=== PATIENT | female | born 1990 | race American Indian/Alaskan Native ===

== ENCOUNTER 2018-12-22 14:44 | Emergency (ER) | payer MEDICAID ==
[2018-12-22 14:51] VITALS: TEMP 98
[2018-12-22] MEDS ORDERED: Sodium Chloride 0.9% 1,000 ML IV STA (15:15)
[2018-12-22] MEDS ORDERED: Magnesium Sulfate 1 gm in D5W 1 GM/100 ML BAG IVPB STA (15:15)
[2018-12-22] MEDS ORDERED: Dexamethasone 4 mg/1 ml IVP STA (15:15)
--- NOTE | 2018-12-22 15:15 | C.PDOC ---
History Of Present Illness Patient is a 28 year old female, with a PMHx of intermittent headache, who presents to the ED c/o persistent headache for the past 6 months. Patient states that she feels when the headache is about to come on and notes associated blurry vision and nausea. Patient denies taking pain medications because she "doesn't like taking medications". She also denies any prior evaluation for her present symptom because "I would go to the hospital, but I wouldn't have the patience to be evaluated so I would leave". She denies any trauma, dizziness, or other associated symptoms. ALSO HO GASTRITIS BUT NONCOMPLIANT WITH MEDS Time Seen by Provider: 12/22/18 15:03 Chief Complaint (Nursing): Headache History/Exam Limitations: no limitations Onset/Duration Of Symptoms: Other (6 months) Current Symptoms Are (Timing): Still Present Quality: "Pain" Associated Symptoms: Blurred Vision, Nausea Recent travel outside of the [place]: No Additional History Per: Patient Past Medical History Reviewed: Historical Data, Nursing Documentation, Vital Signs Vital Signs: Last Vital Signs Temp 98 F 12/22/18 14:48 Pulse 83 12/22/18 14:48 Resp 20 12/22/18 14:48 BP 103/71 12/22/18 14:48 Pulse Ox 100 12/22/18 14:48 Primary Care Provider: FAMILY PROVIDER,NO - Medical History PMH: Asthma Surgical History: No Surg Hx Family History: States: No Known Family Hx - Social History Hx Alcohol Use: Yes (Ex drinker) Hx Substance Use: Yes - Immunization History Hx Tetanus Toxoid Vaccination: No Hx Influenza Vaccination: No Hx Pneumococcal Vaccination: No Review Of Systems Except As Marked, All Systems Reviewed And Found Negative. Eyes: Positive for: Vision Change (blurry vision ) Gastrointestinal: Positive for: Nausea Neurological: Positive for: Headache Physical Exam - Physical Exam Appears: Non-toxic, Other (uncomfortable ) Skin: Warm, Dry Head: Atraumatic, Normacephalic Eye(s): bilateral: Normal Inspection, Other (mild photophobia ) Oral Mucosa: Moist Neck: Normal ROM, Supple Chest: Symmetrical, No Deformity Cardiovascular: Rhythm Regular, No Murmur Respiratory: Other (NARD) Neurological/Psych: Oriented x3, Normal Speech, Normal Cognition, Normal Motor, Normal Sensation, Normal Reflexes, Other (Neuro intact) ED Course And Treatment - Laboratory Results Urine POC: Positive O2 Sat by Pulse Oximetry: 100 (on RA) Pulse Ox Interpretation: Normal Progress Note: Plan: Tylenol 975mg PO. Decadron 8mg IVP. Toradol 30mg IVP. Reglan 10mg IVP. Magnesium Sulfate 1gm in 100ml IVPB. IV Fluids Progress - Re-Evaluation Re-evaluation Note: 12/22/18 16:46 GUTIERREZ RESOLVED. PT ADVISED FU OBGYN - Data Reviewed Data Reviewed: Diagnostic imaging Disposition Counseled Patient/Family Regarding: Diagnosis, Need For Followup - Disposition Referrals: [facility] [Outside] [facility] [Outside] [facility] [Outside] Disposition: HOME/ ROUTINE Disposition Time: 16:46 Condition: GOOD Instructions: Migraine Headache (DC) Forms: [facility] (Croatian) - Clinical Impression Clinical Impression: Migraine - Scribe Statement The provider has reviewed the documentation as recorded by the Christinaibjaspreet Crane
[2018-12-22] MEDS ORDERED: Sodium Chloride 0.9% 1,000 ML ONE (16:29)
[2018-12-22] MEDS ORDERED: Magnesium Sulfate 1 gm in D5W 1 GM/100 ML BAG IVPB ONE (16:29)
[2018-12-22] MEDS ORDERED: Dexamethasone 4 mg/1 ml ONE (16:29)
[2018-12-22 17:03] VITALS: BP 125/73; PULSE 68; RESP 18; O2SAT 98
== END 2018-12-22 17:03 | disposition home or self-care (01) ==
LOC: C.ER 14:44
DX: G43.909 Migraine, unspecified, not intractable, without status migrainosus (principal)
CPT/HCPCS: 81025; 96365; 96375; 99285; J1100; J2765; J3475; J7030